=== PATIENT | female | born 2000 | race Hispanic/Latino ===

== ENCOUNTER 2021-04-17 13:13 | Emergency (ER) | payer BC ==
[2021-04-18 14:17] LABS: SARS-CoV-2 PCR by NAA DETECTED (NotDetected)
== END 2021-04-17 14:56 | disposition home or self-care (01) ==
LOC: CSHERS 13:13
DX: U07.1 COVID-19 (principal)
CPT/HCPCS: 99283; U0003; U0005

== ENCOUNTER 2022-07-18 18:00 | Emergency (ER) | payer BC | END 2022-07-18 20:14 | disposition home or self-care (01) | LOC: CSHERS 18:00 | DX: J20.9 Acute bronchitis, unspecified (principal); J45.909 Unspecified asthma, uncomplicated | CPT/HCPCS: 71045 ==